=== PATIENT | female | born 1995 | race Hispanic/Latino ===

== ENCOUNTER 2024-11-02 12:57 | Emergency (ER) | payer OTHER, SELFPAY ==
--- NOTE | 2024-11-02 13:28 | ER ---
Nurse's Notes [facility] Name: Meka Andersen Age: 29 yrs Sex: Female : 1995 Arrival Date: 11/02/2024 Time: 12:57 Bed 16 Private MD: Diagnosis: Diffuse otitis externa, right ear Presentation: 11/02 13:08 Chief complaint: Patient states: Right ear pain x 4 days. Coronavirus screen: At this jl7 time, the client does not indicate any symptoms associated with coronavirus-19. Ebola Screen: No symptoms or risks identified at this time. Initial Sepsis Screen: Does the patient meet any 2 criteria? No. Patient's initial sepsis screen is negative. Does the patient have a suspected source of infection? No. Patient's initial sepsis screen is negative. Risk Assessment: Do you want to hurt yourself or someone else? Patient reports no desire to harm self or others. Onset of symptoms was October 29, 2024. 13:08 Method Of Arrival: Ambulatory jl7 13:08 Acuity: PLACIDO 4 jl7 Triage Assessment: 13:09 General: Appears in no apparent distress. uncomfortable, Behavior is cooperative, jl7 appropriate for age, restless. Pain: Complains of pain in right ear Pain currently is 10 out of 10 on a pain scale. EENT: Reports pain in right ear. 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 - Infectious Disease History:: Denies. - Social history:: Smoking status: Patient denies any tobacco usage or history of. Screenin:00 [facility] ED Fall Risk Assessment (Adult) History of falling in the last 3 months, db including since admission No falls in past 3 months (0 pts) Confusion or Disorientation No (0 pts) Intoxicated or Sedated No (0 pts) Impaired Gait No (0 pts) Mobility Assist Device Used No (0 pt) Altered Elimination No (0 pt) Score/Fall Risk Level 0 - 2 = Low Risk Oriented to surroundings, Maintained a safe environment. Abuse screen: Denies threats or abuse. Denies injuries from another. Nutritional screening: No deficits noted. Tuberculosis screening: No symptoms or risk factors identified. Assessment: 13:30 Reassessment: Patient appears in no apparent distress at this time. Patient and/or db family updated on plan of care and expected duration. Pain level reassessed. Patient is alert, oriented x 3, equal unlabored respirations, skin warm/dry/pink. General: Appears in no apparent distress. comfortable, Behavior is calm, cooperative. Vital Signs: 13:08 BP 149 / 96; Pulse 75; Resp 17; Temp 98.4; Pulse Ox 95% ; Weight 77.11 kg; Height 5 ft. jl7 2 in. ; Pain 10/10; 13:08 Body Mass Index 31.09 (77.11 kg, 157.48 cm) jl7 13:08 Pain Scale: Adult [facility] ED Course: 13:00 Patient arrived in ED. im 13:00 Assist provider with foreign body removal from right ear canal. db 13:02 Tere Paniagua MD is Attending Physician. gb1 13:09 Triage completed. jl7 13:09 Arm band placed on right wrist. jl7 13:59 Corrie Perez, RN is Primary Nurse. db 14:00 Patient has correct armband on for positive identification. Bed in low position. Call db light in reach. Side rails up X 1. Pulse ox on. NIBP on. Warm blanket given. Pillow given. 14:00 Patient did not have IV access during this emergency room visit. db Administered Medications: No medications were administered Medication: 14:00 VIS not applicable for this client. db Outcome: 13:28 Discharge ordered by . gb1 14:00 Discharged to home ambulatory, db 14:00 Condition: stable 14:00 Discharge instructions given to patient, Instructed on discharge instructions, follow up and referral plans. Prescriptions given X 2, 14:01 Patient left the ED. db Signatures: Nilson Rocha RN RN jl7 Corrie Perez, RN RN Irais Miles Tere aPniagua MD MD gb1
--- NOTE | 2024-11-02 13:28 | EDPHYS ---
Physician Documentation [facility] Name: Meka Andersen Age: 29 yrs Sex: Female : 1995 Arrival Date: 11/02/2024 Time: 12:57 Bed 16 Private MD: ED Physician Tere Paniagua HPI: 11/02 13:36 This 29 yrs old Female presents to ER via Ambulatory with complaints of Ear gb1 Pain. 13:36 29-year-old female with right ear pain for 3 to 4 days. Patient's been using peroxide gb1 and [id number] eardrops for ear pain. She denies swimming or any water in the ear. She has been using Q-tips as well due to itching of the ear. Patient denies any foreign body in the ear.. 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 - Infectious Disease History:: Denies. - Social history:: Smoking status: Patient denies any tobacco usage or history of. Exam: 13:36 Constitutional: This is a well developed, well nourished patient who is awake, alert, gb1 and in no acute distress. Head/Face: Normocephalic, atraumatic. Eyes: Pupils equal round and reactive to light, extra-ocular motions intact. Lids and lashes normal. Conjunctiva and sclera are non-icteric and not injected. Cornea within normal limits. Periorbital areas with no swelling, redness, or edema. ENT: Nares patent. No nasal discharge, no septal abnormalities noted. right tympanic membrane is erythematous and bulging with the canal is also erythematous and large white chunky debris is present. Left tympanic membrane is normal and external auditory canals is clear.. Oropharynx with no redness, swelling, or masses, exudates, or evidence of obstruction, uvula midline. Mucous membranes moist. Chest/axilla: Normal chest wall appearance and motion. Nontender with no deformity. No lesions are appreciated. Cardiovascular: Regular rate and rhythm with a normal S1 and S2. No gallops, murmurs, or rubs. Normal PMI, no JVD. No pulse deficits. Vital Signs: 13:08 BP 149 / 96; Pulse 75; Resp 17; Temp 98.4; Pulse Ox 95% ; Weight 77.11 kg; Height 5 ft. jl7 2 in. ; Pain 10/10; 13:08 Body Mass Index 31.09 (77.11 kg, 157.48 cm) jl7 13:08 Pain Scale: Adult jl7 MDM: 13:09 Medical Screening Exam initiated gb1 13:36 ED course: 29-year-old female with a right otitis externa. I removed the debris that gb1 was in the right ear canal and the tympanic membrane is intact no rupture. The canal is erythematous and very tender to touch on debris removal. I prescribed Ciprodex and recommended no water in the ear given her close return precautions and educated against any kind of foreign body to include Q-tips in the ear. 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 Of also recommended routine primary care follow-up and gave ear cleaning precautions as well.. Administered Medications: No medications were administered Disposition Summary: 11/02/24 13:28 Discharge Ordered Notes: Location: Home gb1 Problem: new gb1 Symptoms: have improved gb1 Condition: Stable gb1 Diagnosis - Diffuse otitis externa, right ear gb1 Followup: gb1 - With: Private Physician - When: - Reason: If symptoms return Discharge Instructions: - Discharge Summary Sheet gb1 - Otitis Externa, [id number] gb1 - Ear Drops, Adult, [id number] gb1 Forms: - Medication Reconciliation Form gb1 - Antibiotic Education gb1 - Prescription Opioid Use gb1 - Patient Portal Instructions gb1 - Leadership Thank You Letter gb1 Prescriptions: - Ibuprofen 800 mg Oral Tablet - take 1 tablet ORAL route every 8 hours As needed take with food; 30 tablet; gb1 Refills: 0, Product Selection Permitted - Ciprodex 0.3-0.1 % Otic drops, suspension - instill 4 drops OTIC route every 12 hours for 7 days , for ears ONLY; 5 gb1 milliliter; Refills: 0, Product Selection Permitted Signatures: Nilson Rocha RN RN jl7 Tere Paniagua MD MD gb1
[2024-11-02 14:11] VITALS: BP 149/96; TEMP 98.4; O2SAT 95
== END 2024-11-02 14:01 | disposition home or self-care (01) ==
LOC: ER 12:57
DX: H60.311 Diffuse otitis externa, right ear (principal)
CPT/HCPCS: 99283